=== PATIENT | male | born 1950 | race Caucasian/White ===

== ENCOUNTER 2023-07-17 09:15 | Emergency (ER) | payer MEDICARE, OTHER, SELFPAY ==
[2023-07-17 09:19] VITALS: BMI 26.9
[2023-07-17 09:20] VITALS: BP 175/81
[2023-07-17 09:22] VITALS: BP 175/81
--- NOTE | 2023-07-17 09:27 | ED.GENMED ---
History of Present Illness
General
Chief Complaint: Chest Pain
Source: patient
Exam Limitations: none
Time Seen by Provider: 07/17/23 09:19
Travel History
Have you had any contact with someone who has COVID-19?: No
Do you have any symptoms of coronavirus? Fever > 100 degrees, chills, cough, shortness of breath, sore throat, loss of taste or smell, muscle aches, or headache?: No
History of Present Illness
History of Present Illness:
72-year-old male presents from [facility] via EMS. Patient complained to staff yesterday of having chest pain. 2 nitroglycerin tablets were given yesterday and blood work was drawn which returned this morning. They found that his troponin
was elevated this morning and sent him here. He has a history of advanced Parkinson's and Lewy body dementia. He is a poor historian however he declines any pain at this time. He tells me [facility] he
was waiting on a customer.
Past History
Past History
ED Past Medical History: COPD, HTN, Hypercholesterolemia and Other (dementia (suspected Lewy Body). PArkinsons)
Social History
Tobacco: Former smoker
Phy Exam
Physical Exam
Physical Exam:
General: Overall well-appearing male no acute respiratory distress
HEENT: Normocephalic atraumatic
Heart: Regular rate and rhythm no murmur
Lungs: Clear to auscultation bilaterally no wheezing
Abdomen: Soft nontender nondistended
Extremities: No cyanosis or edema
Neurologic exam: Alert oriented to person and place tremor noted
Scores
Heart Score for Chest Pain Patients
STEMI patient?: No
History: Slightly or Non-Suspicious
ECG: Normal
Age: </= 45 years
Risk Factors: No Risk Factors
Troponin: </= Normal Limit
Heart Score for Chest Pain Patients: 0
Heart Score Risk: 2.5% MACE over next 6 weeks
Course
Orders/Labs/Results
Orders:
Orders
07/17/23 09:19
Electrocardiogram (*1) Urgent
Reason for Study: Chest Pain
Cardiac Monitoring- Treatment ONCE
EKG- Treatment ONCE
IV Insert/Care/Rem.- Treatment PRN
Pulse Ox/spot Check [RESP] Urgent
Quantity: 1
Special Instructions: ON ROOM AIR
07/17/23 09:24
Basic Metabolic Panel Urgent
Complete Blood Count/With Diff Urgent
Troponin I Urgent
07/17/23 09:32
CR Chest - 2 Views Urgent
Comment:
Reason For Exam: chest pain
07/17/23 11:51
Troponin I Urgent
Abnormal Lab Results
07/17/23 07/17/23
09:24 11:51
RBC 4.13 L 10^6/uL
(4.70-6.10)
Hct 38.5 L %
(39.0-52.0)
MCH 32.0 H pg
(27.0-31.0)
Plt Count 122 L 10^3/uL
(130-400)
MPV 12.8 H fL
(7.4-10.4)
BUN 27 H mg/dl
(9-20)
Glucose 138 H mg/dl
(70-99)
Troponin I 0.225 H* D ng/ml 0.202 H* ng/ml
07/17/23 09:24
07/17/23 09:24
Vital Signs
Initial and Last Documented VS:
Initial Vital Signs
Temp
98.3 F
07/17/23 09:17
Last Documented Vital Signs
Temp Pulse Resp BP Pulse Ox
98.3 F 54 9 175/81 98
07/17/23 09:17 07/17/23 15:30 07/17/23 12:30 07/17/23 09:22 07/17/23 13:30
MDM/Problems Addressed
Differential Diagnosis Includes:
Reported chest pain with elevated troponin at nursing facility. Consider ACS. Symptoms have resolved stable vital signs. Do not suspect PE.
Review of hospital records demonstrates he was here 2 years ago for similar presentation with nonspecific chest pain and elevated troponin. Decision was made by cardiology at that point for conservative management with medication instead of
catheterization. Patient was given aspirin en route 324 mg. He currently is denying chest pain. Will check labs. EKG today was reviewed which shows positive T wave laterally different from prior EKG which showed inverted T waves in V5.
Morphology inferior looks slightly different.
Will check labs. Chest x-ray pending. Repeat troponin. Patient currently without pain
*Critical Care Note
Total Time (30-74mins, 75-104mins- exclusive of procedures): Not Applicable
Update Note
Update Note:
Initial troponin here 0.225. Repeat troponin 0.202. Patient has remained chest pain-free throughout his stay and remained stable. Reviewed prior records. Patient has had elevated troponins in the past higher than what they were today. He has
been admitted in the past for this and cardiology opted for medical management secondary to other medical comorbidities. At this point given stable appearance and downward trending troponin no indication for admission. Will discharge home.
Attempted to call Kacie, the daughter, there was no answer and left message to call back. Did wait a period of time but there was no return call.
ED Attending Note
-
Portions of this chart may have been created with voice recognition software.� Occasional wrong word or��sound alike� substitutions may have occurred due to the inherent limitations of voice recognition software.
Discharge Plan
Departure
Patient Disposition: Home (Routine Discharge)
Date of Disposition: 07/17/23
Time of Disposition: 15:01
Patient with high blood pressure during this ER visit?: No
Discharge Problem:
Chest pain
Instructions: Chest Pain NON-[facility] Follow Up
Prescriptions:
No Action
atorvastatin 20 MG tablet
20 mg PO DAILY AT 0700
donepezil 10 MG tablet
10 mg PO QPM
melatonin 3 MG tablet
2 tab PO HS
magnesium hydroxide 30 ML suspension
30 ml PO HS PRN (Reason: constipation )
tamsulosin 0.4 MG capsule
0.4 mg PO QPM
Enema 133 ML enema
118 ml RC PRN PRN (Reason: constipation)
aspirin 81 MG tablet,chewable
81 mg PO DAILY
acetaminophen [Tylenol] 325 MG capsule
650 mg PO PRN PRN (Reason: fever >100.4/mild pain)
nitroglycerin 0.4 MG tablet, sublingual
0.4 mg sublingual [id number] PRN (Reason: chest pain) 0RF
paroxetine HCl 10 mg tablet
10 mg PO DAILY
sennosides-docusate sodium [Senna-S] 8.6-50 mg Tablet
1 tab PO HS
risperidone 1 mg tablet
1.5 mg PO QPM
isosorbide mononitrate 30 MG tablet extended release 24 hr
30 mg PO DAILY
ferrous sulfate [FeroSul] 325 MG tablet
325 mg PO MOWEFR
bisacodyl 10 mg Suppository
10 mg MO DAILY PRN (Reason: if no BM for 3 days)
Referrals:
Eugene Mcclendon DO [Family Provider] -
Activity Restrictions/Additional Instructions:
Please continue current medication regimen. Please follow-up with cardiology return if worse otherwise
Interventions
Interventions:
*Risk Screen - Suicide Last Done: 07/17/23 09:17
*Neglect/Abuse Screening Last Done: 07/17/23 09:17
*Nursing Disposition Last Done: 07/17/23 15:46
ED- Cardiac Assessment Last Done: 07/17/23 09:40
Discharge Date and Time
Discharge Date/Time: 07/17/23 15:47
[2023-07-17 09:35] LABS: % Basophils 1.5 % (0-2); % Eosinophils 1.7 % (0-6); % Immature Granulocytes 0.4 % (0-0.5); % Lymphocytes 25.6 % (20.5-51.1); % Monocytes 6.3 % (1.7-9.3); % Neutrophils 64.5 % (42.2-75.2); Absolute Basophils 0.1 10^3/uL (0-0.2); Absolute Eosinophils 0.1 10^3/uL (0-0.7); Absolute Lymphocytes 1.8 10^3/uL (1.2-3.4); Absolute Monocytes 0.5 10^3/uL (0.1-0.6); Absolute Neutrophils 4.6 10^3/uL (1.4-6.5); Hematocrit 38.5 % (39.0-52.0); Hemoglobin 13.2 g/dL (13.0-18.0); Mean Corp Hgb Conc. 34.3 g/dL (33.0-37.0); Mean Corpuscular Volume 93.2 fL (80.0-94.0); Mean Platelet Volume 12.8 fL (7.4-10.4); Nucleated Red Blood Cells % 0.6 % (-); Platelet Count 122 10^3/uL (130-400); Red Blood Cell Count 4.13 10^6/uL (4.70-6.10); Red Cell Dist. Width 13.1 % (11.5-14.5); White Blood Cell Count 7.1 10^3/uL (4.8-10.8)
[2023-07-17 10:08] LABS: Blood Urea Nitrogen 27 mg/dl (9-20); Calcium 8.5 mg/dl (8.4-10.2); Carbon Dioxide 23 mmol/L (22-30); Chloride 105 mmol/L (98-107); Estimated Creatinine Clearance 102 ml/min; Glucose 138 mg/dl (70-99); Sodium 136 mmol/L (135-145); eGFR > 60.00
[2023-07-17 10:10] LABS: Troponin I 0.225 ng/ml
[2023-07-17 12:32] LABS: Troponin I 0.202 ng/ml
== END 2023-07-17 15:47 | disposition home or self-care (01) ==
LOC: EMR 09:15
PROVIDERS: Physician Assistant; EMERGENCY PHYSICIAN Emergency Medicine; FAMILY PHYSICIAN Student in an Organized Health Care Education/Training Program
DX: R07.9 Chest pain, unspecified (principal); F02.80 Dementia in other diseases classified elsewhere, unspecified severity, without behavioral disturbance, psychotic disturbance, mood disturbance, and anxiety; G31.83 Neurocognitive disorder with Lewy bodies; G20.A1 Parkinson's disease without dyskinesia, without mention of fluctuations; I10 Essential (primary) hypertension; J44.9 Chronic obstructive pulmonary disease, unspecified
CPT/HCPCS: 99285; 36415; 71046; 80048; 80053; 83735; 83880; 84484; 85025; 85027; 85610; 85730; 93005

== ENCOUNTER → 2023-07-22 08:35 | Outpatient (REF) | payer MEDICARE, OTHER, SELFPAY ==
[2023-07-22 10:29] LABS: % Basophils 1.8 % (0-2); % Eosinophils 4.1 % (0-6); % Immature Granulocytes 0.1 % (0-0.5); % Monocytes 10.1 % (1.7-9.3); % Neutrophils 49.9 % (42.2-75.2); Absolute Basophils 0.1 10^3/uL (0-0.2); Absolute Eosinophils 0.3 10^3/uL (0-0.7); Absolute Lymphocytes 2.4 10^3/uL (1.2-3.4); Absolute Monocytes 0.7 10^3/uL (0.1-0.6); Absolute Neutrophils 3.5 10^3/uL (1.4-6.5); Hematocrit 36.8 % (39.0-52.0); Hemoglobin 12.7 g/dL (13.0-18.0); Mean Corp Hgb Conc. 34.5 g/dL (33.0-37.0); Mean Corpuscular Hgb 31.7 pg (27.0-31.0); Mean Corpuscular Volume 91.8 fL (80.0-94.0); Mean Platelet Volume 12.7 fL (7.4-10.4); Nucleated Red Blood Cells % 0 % (-); Platelet Count 117 10^3/uL (130-400); Red Blood Cell Count 4.01 10^6/uL (4.70-6.10); Red Cell Dist. Width 13.1 % (11.5-14.5)
[2023-07-22 10:45] LABS: Blood Urea Nitrogen 27 mg/dl (9-20); Calcium 8.4 mg/dl (8.4-10.2); Carbon Dioxide 23 mmol/L (22-30); Chloride 103 mmol/L (98-107); Glucose 90 mg/dl (70-99); Magnesium 2.2 mg/dl (1.6-2.3); Potassium 4.2 mmol/L (3.5-5.1); Sodium 136 mmol/L (135-145); eGFR > 60.00
[2023-07-22 10:46] LABS: NT-proBNP 488 pg/ml
== END ==
LOC: OLABN 08:35
PROVIDERS: ATTENDING PHYSICIAN Student in an Organized Health Care Education/Training Program
DX: I10 Essential (primary) hypertension (principal)
CPT/HCPCS: 36415; 80048; 83735; 83880; 85025

== ENCOUNTER → 2023-07-30 09:45 | Outpatient (REF) | payer MEDICARE, OTHER, SELFPAY ==
[2023-07-30 10:24] LABS: Hematocrit 37.6 % (39.0-52.0); Hemoglobin 12.8 g/dL (13.0-18.0); Platelet Count 136 10^3/uL (130-400); Red Cell Dist. Width 13.2 % (11.5-14.5); White Blood Cell Count 8.3 10^3/uL (4.8-10.8)
== END ==
LOC: OLABN 09:45
PROVIDERS: ATTENDING PHYSICIAN Student in an Organized Health Care Education/Training Program
DX: D69.6 Thrombocytopenia, unspecified (principal)
CPT/HCPCS: 36415; 85027

== ENCOUNTER → 2023-08-26 09:10 | Outpatient (REF) | payer MEDICARE, OTHER, SELFPAY ==
[2023-08-26 12:02] LABS: Total Cholesterol 89 mg/dl (50-199); Triglyceride 75 mg/dl (10-149); Very Low Density Lipoprotein 15 mg/dl (0-30)
[2023-08-26 12:12] LABS: HDL Cholesterol 41 mg/dl; LDL Cholesterol, Calculated 33 mg/dl
== END ==
LOC: OLABN 09:10
PROVIDERS: ATTENDING PHYSICIAN Student in an Organized Health Care Education/Training Program
DX: E78.5 Hyperlipidemia, unspecified (principal)
CPT/HCPCS: 36415; 80061